=== PATIENT | male | born 1980 | race Two or more races ===

== ENCOUNTER 2023-09-17 23:03 | Inpatient (IN) | payer OTHER ==
[~2023-09-17] VITALS: Ht 182.9 cm; Wt 149.0 kg
[2023-09-17 23:42] LABS: Basophils # (auto) 0.1 10 ^3/uL (0-0.2); Basophils % (auto) 1.1 % (0.0-2.0); Eosinophils # (auto) 0.1 10 ^3/uL (0-0.8); Eosinophils % (auto) 1.7 % (0.0-7.0); Hematocrit 41.2 % (41.0-53.0); Hemoglobin 14.9 g/dL (13.5-17.5); Lymphocytes # (auto) 3.2 10 ^3/uL (0.4-5.4); Lymphocytes % (auto) 43.5 % (10.0-50.0); Mean Corpuscular Hemoglobin 30.9 pg (28.0-32.0); Mean Corpuscular Hgb Conc. 36.3 g/dL (32.0-36.0); Mean Corpuscular Volume 85.2 fL (80.0-100.0); Monocytes # (auto) 0.7 10 ^3/uL (0-1.3); Monocytes % (auto) 8.9 % (0.0-12.0); Neutrophils # (auto) 3.3 10 ^3/uL (1.6-8.6); Neutrophils % (auto) 44.8 % (37.0-80.0); Nucleated Red Blood Cells % 0.3 %; Red Blood Cells 4.83 10^6/uL (4.5-5.90); Red Cell Distribution Width 14.7 % (11.8-14.3); White Blood Cell 7.3 10^3/uL (4.4-10.8)
[2023-09-18] VITALS (9 sets, daily range): BP systolic 114–140; BP diastolic 70–90; PULSE 73–86; RESP 16–21; TEMP 97.7–98.7; O2SAT 94–98
[2023-09-18 00:58] LABS: Albumin 4.2 g/dL (3.2-4.8); Alkaline Phosphatase 99 U/L (46-116); Anion Gap 10 (5-15); Bilirubin, Total < 0.2 mg/dL (0.2-1.0); Calcium 9.3 mg/dL (8.7-10.4); Carbon Dioxide 21 mmol/L (20-30); Chloride 105 mmol/L (98-107); Glucose 251 mg/dL (74-106); Magnesium 1.9 mg/dL (1.6-2.6); Sodium 136 mmol/L (136-145); Total Protein 7.2 g/dL (5.7-8.2)
[2023-09-18] MEDS: SODIUM CHLORIDE 0.9% 1,000 ML IV ONE ×2 (01:02→09:00)
[2023-09-18 01:03] LABS: Alanine Aminotransferase 140 U/L (7-40); Aspartate Aminotransferase 54 U/L (13-40); BUN/Creatinine Ratio 7.9 (10.0-20.0); Blood Urea Nitrogen 8 mg/dL (9-23); Potassium 4.2 mmol/L (3.5-5.1)
[2023-09-18] MEDS: PANTOPRAZOLE 40 MG/10 ML VIAL INJ IV ONE (01:05)
[2023-09-18] MEDS: ONDANSETRON HCL 4 MG/2 ML VIAL IV ONE (01:05)
[2023-09-18] MEDS: LORazepam 2MG/ML-1ML VIAL IV ONE (01:12)
[2023-09-18 01:24] LABS: Urine Bacteria FEW /hpf (None Seen); Urine Blood Negative /uL (Negative); Urine Clarity Clear (Clear); Urine Color Light-Yellow (Yellow); Urine Protein, UAD Negative (Negative); Urine Specific Gravity 1.016 (1.001-1.035); Urine Urobilinogen Normal (Negative); Urine WBC <1 /hpf (0 - 3)
[2023-09-18] MEDS: THIAMINE 100mg/ml INJ (200mg/2ml VIAL) ONE (01:43)
[2023-09-18] MEDS: LORazepam 2MG/ML-1ML VIAL IM ONE (08:40)
[2023-09-18] MEDS ORDERED: NITROGLYCERIN 0.4 MG SL TAB SL PRN (09:00)
[2023-09-18] MEDS ORDERED: MORPHINE SULFATE INJ 2 MG/ml SYRG IV PRN (09:00)
[2023-09-18] MEDS: SODIUM CHLORIDE 0.9% 1,000 ML IV SCH (09:00)
[2023-09-18] MEDS: LORazepam 2MG/ML-1ML VIAL IV SCH (09:00)
[2023-09-18] MEDS ORDERED: ACETAMINOPHEN 325 MG TAB PO PRN (09:00)
[2023-09-18] MEDS ORDERED: CYCL-611 PO (09:04)
[2023-09-18] MEDS ORDERED: OMEP1CAP70 PO (09:04)
[2023-09-18] MEDS ORDERED: IBUP1TAB5 PO (09:04)
[2023-09-18] MEDS ORDERED: ALBU108A5 INH (09:04)
[2023-09-18] MEDS ORDERED: CHLO25CA10 PO (09:04)
[2023-09-18] MEDS ORDERED: DOXY100C4 PO (09:04)
[2023-09-18] MEDS ORDERED: FAMO-12 PO (09:04)
[2023-09-18] MEDS ORDERED: CHLO25CA9 PO (09:04)
[2023-09-18] MEDS ORDERED: ALUMSUS PO (09:04)
[2023-09-18] MEDS ORDERED: MAGNESIUM HYDROXIDE PO PRN (09:15)
[2023-09-18] MEDS ORDERED: SIMETHICONE PO PRN (09:15)
[2023-09-18] MEDS ORDERED: ALUMINUM HYDROXIDE PO PRN (09:15)
[2023-09-18] MEDS ORDERED: ALBUTEROL SULF 2.5 MG/0.5ML(0.5%) NEB SOLN NEB PRN (09:45)
[2023-09-18] MEDS: chlordiazePOXIDE HCL 25 MG CAP PO ONE (09:57)
[2023-09-18] MEDS: PANTOPRAZOLE 40 MG TAB PO SCH (10:08)
[2023-09-18] MEDS: ENOXAPARIN SOD 40 MG/0.4 ML SYRINGE SC SCH (10:08)
[2023-09-18] MEDS: FAMOTIDINE 20 MG TAB PO SCH (10:08)
[2023-09-18] MEDS: FOLIC ACID 1 MG, MAGNESIUM SULF SDV 50% 8 MEQ, MULTIPLE VITAMIN 10 ML, THIAMINE INJ 100... INJ SCH (10:54)
[2023-09-18 11:18] LABS: Triglycerides 986 mg/dL (< 150)
[2023-09-18 11:19] LABS: Cholesterol 217 mg/dL (< 200); HDL Cholesterol 36 mg/dL (40-59)
[2023-09-18] MEDS ORDERED: FOLIC ACID 1 MG, MULTIPLE VITAMIN 10 ML, MAGNESIUM SULF SDV 50% 8 MEQ, THIAMINE INJ 100... INJ SCH (18:00)
[2023-09-19] VITALS (10 sets, daily range): BP systolic 127–141; BP diastolic 80–94; PULSE 65–104; RESP 16–21; TEMP 97.5–99; O2SAT 93–100
[2023-09-19 06:13] LABS: Basophils # (auto) 0 10 ^3/uL (0-0.2); Basophils % (auto) 0.7 % (0.0-2.0); Eosinophils # (auto) 0.2 10 ^3/uL (0-0.8); Eosinophils % (auto) 2.4 % (0.0-7.0); Hematocrit 40.7 % (41.0-53.0); Hemoglobin 14.1 g/dL (13.5-17.5); Lymphocytes # (auto) 2.9 10 ^3/uL (0.4-5.4); Lymphocytes % (auto) 42.1 % (10.0-50.0); Mean Corpuscular Hemoglobin 29.2 pg (28.0-32.0); Mean Corpuscular Hgb Conc. 34.5 g/dL (32.0-36.0); Mean Corpuscular Volume 84.5 fL (80.0-100.0); Monocytes # (auto) 0.5 10 ^3/uL (0-1.3); Monocytes % (auto) 6.7 % (0.0-12.0); Neutrophils # (auto) 3.3 10 ^3/uL (1.6-8.6); Neutrophils % (auto) 48.1 % (37.0-80.0); Nucleated Red Blood Cells % 0.1 %; Red Blood Cells 4.82 10^6/uL (4.5-5.90); Red Cell Distribution Width 14.3 % (11.8-14.3); White Blood Cell 6.8 10^3/uL (4.4-10.8)
[2023-09-19 06:16] LABS: Alanine Aminotransferase 98 U/L (7-40); Albumin 3.8 g/dL (3.2-4.8); Alkaline Phosphatase 89 U/L (46-116); Anion Gap 8 (5-15); Aspartate Aminotransferase 39 U/L (13-40); BUN/Creatinine Ratio 8.2 (10.0-20.0); Bilirubin, Total 0.5 mg/dL (0.2-1.0); Blood Urea Nitrogen 8 mg/dL (9-23); Calcium 9.3 mg/dL (8.7-10.4); Carbon Dioxide 25 mmol/L (20-30); Chloride 106 mmol/L (98-107); Potassium 4.3 mmol/L (3.5-5.1); Sodium 139 mmol/L (136-145); Total Protein 6.9 g/dL (5.7-8.2)
[2023-09-19 06:32] LABS: Glucose 148 mg/dL (74-106)
[2023-09-19 11:26] LABS: Magnesium 2.1 mg/dL (1.6-2.6)
[2023-09-19 11:27] LABS: Phosphorus 3.8 mg/dL (2.4-5.1)
[2023-09-19] MEDS ORDERED: ONDANSETRON HCL 4 MG/2 ML VIAL IV PRN (11:30)
[2023-09-19 12:53] LABS: INR 1.07 (0.9-1.15); Prothrombin Time 11.3 sec (9.3-11.8)
[2023-09-19] MEDS: chlordiazePOXIDE HCL 25 MG CAP PO PRN (13:06)
[2023-09-19] MEDS: THIAMINE HCL 100 MG TAB PO ONE (15:22)
[2023-09-19] MEDS: GABAPENTIN 300 MG CAP PO SCH (15:22)
[2023-09-19] MEDS: FOLIC ACID 1 MG TAB PO ONE (15:23)
[2023-09-19] MEDS: MAGNESIUM OXIDE 400 MG TAB PO ONE (15:24)
[2023-09-19] MEDS: MULTIPLE VITAMINS W/ MINERALS TAB PO ONE (15:24)
[2023-09-19] MEDS: ATORVASTATIN 20 MG TAB PO SCH (22:06)
[2023-09-19] MEDS: GEMFIBROZIL 600 MG TAB PO SCH (22:07)
[2023-09-20 05:47] LABS: Basophils # (auto) 0.1 10 ^3/uL (0-0.2); Basophils % (auto) 0.7 % (0.0-2.0); Eosinophils # (auto) 0.2 10 ^3/uL (0-0.8); Eosinophils % (auto) 2.6 % (0.0-7.0); Hematocrit 40.2 % (41.0-53.0); Hemoglobin 13.8 g/dL (13.5-17.5); Lymphocytes # (auto) 2.9 10 ^3/uL (0.4-5.4); Lymphocytes % (auto) 38.5 % (10.0-50.0); Mean Corpuscular Hgb Conc. 34.3 g/dL (32.0-36.0); Mean Corpuscular Volume 84.6 fL (80.0-100.0); Monocytes # (auto) 0.6 10 ^3/uL (0-1.3); Monocytes % (auto) 7.4 % (0.0-12.0); Neutrophils # (auto) 3.9 10 ^3/uL (1.6-8.6); Neutrophils % (auto) 50.8 % (37.0-80.0); Red Blood Cells 4.75 10^6/uL (4.5-5.90); Red Cell Distribution Width 14.3 % (11.8-14.3); White Blood Cell 7.6 10^3/uL (4.4-10.8)
[2023-09-20 05:54] VITALS: O2SAT 95
[2023-09-20 06:01] LABS: Anion Gap 7 (5-15); Carbon Dioxide 28 mmol/L (20-30); Chloride 104 mmol/L (98-107); Sodium 139 mmol/L (136-145)
[2023-09-20 06:02] LABS: Calcium 9.6 mg/dL (8.7-10.4)
[2023-09-20 06:07] LABS: BUN/Creatinine Ratio 13.9 (10.0-20.0); Blood Urea Nitrogen 14 mg/dL (9-23); Glucose 160 mg/dL (74-106)
[2023-09-20 07:51] VITALS: BP 125/87; PULSE 90; RESP 20; TEMP 98.4; O2SAT 95
[2023-09-20 08:20] VITALS: PULSE 109; PULSE 90; RESP 20; O2SAT 95
[2023-09-20] MEDS: MULTIPLE VITAMINS W/ MINERALS TAB PO SCH (09:29)
[2023-09-20] MEDS: THIAMINE HCL 100 MG TAB PO SCH (09:29)
[2023-09-20] MEDS: MAGNESIUM OXIDE 400 MG TAB PO SCH (09:30)
[2023-09-20] MEDS: FOLIC ACID 1 MG TAB PO SCH (09:32)
[2023-09-20 12:54] VITALS: BP 122/83; PULSE 95; RESP 19; TEMP 98; O2SAT 95
[2023-09-20] MEDS ORDERED: GEMF-66 PO (13:09)
[2023-09-20] MEDS ORDERED: LOS25T PO (13:09)
[2023-09-20] MEDS ORDERED: METF-370 PO (13:10)
[2023-09-20] MEDS ORDERED: CHL10C PO (13:11)
[2023-09-20] MEDS ORDERED: CHLO10CA70 PO (14:25)
[2023-09-20 15:14] VITALS: BP 122/83; PULSE 95; RESP 18; TEMP 36.7; O2SAT 95
[2023-09-20 16:40] VITALS: BP 134/87; PULSE 108; RESP 20; TEMP 98.6; O2SAT 94
[2023-09-21] MEDS ORDERED: LOSARTAN POTASSIUM 25 MG TAB PO SCH (10:00)
== END 2023-09-20 17:00 | disposition home or self-care (01) | DRG 392 ==
LOC: ER 23:03 → TELE 09-18 09:02 → TELE-E-ADS 09-18 15:13
PROVIDERS: ADMIT Nurse Practitioner Family; ATTEND Nurse Practitioner Family
DX: K29.70 Gastritis, unspecified, without bleeding (principal); F10.130 Alcohol abuse with withdrawal, uncomplicated; Z68.41 Body mass index [BMI] 40.0-44.9, adult; E03.9 Hypothyroidism, unspecified; E66.01 Morbid (severe) obesity due to excess calories; E11.65 Type 2 diabetes mellitus with hyperglycemia; J45.909 Unspecified asthma, uncomplicated; K21.9 Gastro-esophageal reflux disease without esophagitis; E78.5 Hyperlipidemia, unspecified; F17.200 Nicotine dependence, unspecified, uncomplicated; E78.1 Pure hyperglyceridemia; Z83.3 Family history of diabetes mellitus; Z79.51 Long term (current) use of inhaled steroids; Z79.899 Other long term (current) drug therapy
CPT/HCPCS: 36415; 71046; 80048; 80053; 80061; 80320; 81001; 82962; 83036; 83690; 83735; 83880; 84100; 84439; 84443; 84484; 85025; 85610; 93005; 93306; G0378; J2405; J2470

== ENCOUNTER 2023-09-29 13:00 | Emergency (ER) | payer OTHER ==
[~2023-09-29] VITALS: Ht 182.9 cm; Wt 143.0 kg
[~2023-09-29 13:00] MED LIST: ALBU108A5 INH; ALUMSUS PO; CHLO10CA70 PO; CHLO25CA10 PO; CYCL-611 PO; DOXY100C4 PO; FAMO-12 PO; GEMF-66 PO; IBUP1TAB5 PO; LOS25T PO; METF-370 PO; OMEP1CAP70 PO
[2023-09-29 13:48] LABS: Basophils # (auto) 0 10 ^3/uL (0-0.2); Basophils % (auto) 0.6 % (0.0-2.0); Eosinophils # (auto) 0.1 10 ^3/uL (0-0.8); Eosinophils % (auto) 1.6 % (0.0-7.0); Hematocrit 44.5 % (41.0-53.0); Hemoglobin 15.2 g/dL (13.5-17.5); Lymphocytes # (auto) 2.8 10 ^3/uL (0.4-5.4); Lymphocytes % (auto) 43.4 % (10.0-50.0); Mean Corpuscular Hemoglobin 29.3 pg (28.0-32.0); Mean Corpuscular Hgb Conc. 34.1 g/dL (32.0-36.0); Mean Corpuscular Volume 86.1 fL (80.0-100.0); Monocytes # (auto) 0.7 10 ^3/uL (0-1.3); Monocytes % (auto) 10.7 % (0.0-12.0); Neutrophils # (auto) 2.8 10 ^3/uL (1.6-8.6); Neutrophils % (auto) 43.7 % (37.0-80.0); Nucleated Red Blood Cells % 0.2 %; Platelet Count (auto) 178 10^3/uL (140-450); Red Blood Cells 5.16 10^6/uL (4.5-5.90); Red Cell Distribution Width 14.2 % (11.8-14.3); White Blood Cell 6.4 10^3/uL (4.4-10.8)
[2023-09-29 14:00] LABS: INR 1.08 (0.9-1.15); Partial Thromboplastin Time 26.3 SEC (24.5-34.5); Prothrombin Time 11.4 sec (9.3-11.8)
[2023-09-29 14:08] LABS: Alanine Aminotransferase 196 U/L (7-40); Albumin 4.7 g/dL (3.2-4.8); Alkaline Phosphatase 86 U/L (46-116); Anion Gap 5 (5-15); Aspartate Aminotransferase 104 U/L (13-40); BUN/Creatinine Ratio 14.4 (10.0-20.0); Bilirubin, Total 0.7 mg/dL (0.2-1.0); Blood Urea Nitrogen 16 mg/dL (9-23); Calcium 10.2 mg/dL (8.7-10.4); Carbon Dioxide 27 mmol/L (20-30); Chloride 106 mmol/L (98-107); Glucose 98 mg/dL (74-106); Potassium 4.1 mmol/L (3.5-5.1); Sodium 138 mmol/L (136-145); Total Protein 7.8 g/dL (5.7-8.2)
[2023-09-29 15:06] LABS: Urine Bacteria None Seen /hpf (None Seen); Urine WBC None Seen /hpf (0 - 3)
[2023-09-29 15:24] LABS: Urine Blood Negative /uL (Negative); Urine Clarity Clear (Clear); Urine Color Light-Yellow (Yellow); Urine Protein, UAD Negative (Negative); Urine Specific Gravity 1.017 (1.001-1.035); Urine Urobilinogen Normal (Negative)
[2023-09-29 18:40] VITALS: BP 115/78; PULSE 80; RESP 16; TEMP 98; O2SAT 96
== END 2023-09-29 18:45 | disposition home or self-care (01) ==
LOC: ER 13:00
DX: R53.1 Weakness (principal); E11.9 Type 2 diabetes mellitus without complications; E42 Marasmic kwashiorkor
CPT/HCPCS: 36415; 71045; 80053; 81001; 84484; 85025; 85610; 85730; 93005